=== PATIENT | male | born 1965 | race Caucasian/White ===

== ENCOUNTER 2020-10-07 18:58 | Inpatient (IN) | payer OTHER ==
[~2020-10-07] VITALS: Ht 188 cm; Wt 128.8 kg
--- NOTE | ~2020-10-07 | EMS ---
[address] [address] EMS Patient Care Report Name: GILSON ALMANZA Room #: 170-9 ADM IN M.R.#: [id number] Admission: 10/07/20 Attend Phys: Monica Owusu MD Discharge: Date of : 61 Report #: [id number] THIS REPORT FOR: //name// Report Transmitted: 10/07/2020 20:53 EMS Care Summary [place], [place]/[facility] Incident [id number] @ 10/07/2020 18:21 Incident Location [address] [place] [address] Patient GILSON ALMANZA Male, 55 Years 1965 Patient Address [address] [place] [address] Patient History Other,Hypertension (HTN),Rheumatoid Arthritis,Type 2 Diabetes,Coronary Artery Disease (CAD), Patient Allergies No known allergies, Patient Medications Isosorbide, Aldactone, Risperdal, Mobic, Valproic Acid, Lisinopril, Gabapentin, Klonopin, Zofran, Cymbalta, Trazodone, Folic acid, Depakote, Cyclobenzaprine, Lasix, DuoNeb, [place], Chief Complaint BRONCIAL PNUEMONIA Disposition Transported No Lights/[place] Dispatch Reason Sick Person Transported To [address] [address] EMS Patient Care Report Name: GILSON ALMANZA Room #: 170-9 ADM IN [facility]#: [id number] Admission: 10/07/20 Attend Phys: Monica Owusu MD Discharge: Date of : 61 Report #: [id number] M30 RESPONDED TO A BREATHING PROBLEMS. M30 ARRIVED ON SCENE TO FIND STAFF AND PT OUT FRONT OF NURSING FACILITY IN WHEELCHAIR WAITING FOR TRANSPORT. M30 ASSESSED PT AND HE WAS DEEMED BLS. NURSING FACILITY STAFF SAID PT WAS NEEDING TO BE TRANSPORTED DUE TO "CRITICAL LABS" FOR POSSIBLE BRONCHIAL PNUEMONIA WHICH PT STATED HAD BEEN GOING ON FOR A WEEK. PT HAD NO OTHER COMPLAINTS. PT WAS ASSISTED IN STANDING AND SITTING ONTO STRETCHER AND WAS SECURED USING SEATBELTS AND HANDRAILS THEN LOADED INTO AMBULANCE. PT WAS REASSESSED DURING TRANSPORT AND REMAINED IN STABLE CONDITION WITH NO CHANGES. PT WAS TRANSFERED INTO [facility] SECURED TO STRETCHER AND LEFT SECURED IN A HOSPITAL BED WITH HANDRAILS UP WITH NURSING STAFF. Initial Vitals @18:41P: 89,R: 16,BP: 128/72,Pain: 0/10,CO: 4,SpO2: 95, @18:36P: 97,R: 18,BP: 144/84,Pain: 0/10,GCS: 15,Revised Trauma: 12, Assessments @18:41MENTAL:No Abnormalities,SKIN:No Abnormalities,HEENT:Head/Face: No Abnormalities,Eyes: No Abnormalities,Neck/Airway: No Abnormalities,LUNG SOUNDS:General: No Abnormalities,Left Upper: No Abnormalities,Right Upper: No Abnormalities,Left Lower: No Abnormalities,Right Lower: No Abnormalities,ABDOMEN:General: No Abnormalities,Left Upper: No Abnormalities,Right Upper: No Abnormalities,Left Lower: No Abnormalities,Right Lower: No Abnormalities,PELVIS//GI:No Abnormalities,EXTREMITIES:Left Arm: No Abnormalities,Right Arm: No Abnormalities,Left Leg: No Abnormalities,Right Leg: No Abnormalities,PULSE:NEURO:No Abnormalities, Impression Pneumonia Procedures @18:42ALS AssessmentResponse: UnchangedSucceeded@18:42BLS AssessmentResponse: Unchanged Timeline 18:19,Call Received 18:19,Dispatch Notified 18:21,Dispatched 18:22,En Route 18:31,On Scene 18:32,At Patient 18:36,BP: 144/84 M,PULSE: 97,RR: 18 R,SPO2: Ox,ETCO2: ,BG: ,PAIN: 0,GCS: 15, 18:41,BP: 128/72 M,PULSE: 89,RR: 16 R,SPO2: 95 Ox,ETCO2: ,BG: ,PAIN: 0,GCS: , 18:41,Depart Scene 18:42,ALS Assessment,Response: UnchangedSucceeded, 18:42,BLS Assessment,Response: Unchanged 18:53,At Destination [address] [address] EMS Patient Care Report Name: ALMANZAGILSON Room #: 170-9 ADM IN M.R.#: [id number] Admission: 10/07/20 Attend Phys: Monica Owusu MD Discharge: Date of : 61 Report #: [id number] 19:12,Call Closed Disclaimer v1.1 Copyright 2020 [employer] This EMS Care Summary contains data elements from the applicable legal record (which may be displayed differently). It is designed to provide pertinent information for the following purposes: continuity of care, clinical quality, and state data reporting. The complete legal record is available to ED staff and administrators of the receiving hospital in [employer]'s Patient Tracker. All data is provided "as is."
[2020-10-07 18:58] VITALS: BP 142/86
[2020-10-07 19:41] LABS: URINE BLOOD TRACE (Negative); URINE CLARITY CLEAR; URINE COLOR YELLOW; URINE GLUCOSE-RANDOM* NEGATIVE (Negative); URINE KETONES NEGATIVE (Negative); URINE LEUKOCYTES-REFLEX NEGATIVE (Negative); URINE NITRITE-REFLEX NEGATIVE (Negative); URINE PROTEIN (DIPSTICK) 2+ (Negative); URINE SPECIFIC GRAVITY >= 1.030 (1.005-1.035)
[2020-10-07 19:43] LABS: ICTOTEST (BILI CONFIRMATORY) Negative (Negative); URINE BILIRUBIN NEGATIVE (Negative)
[2020-10-07 19:51] LABS: MUCUS >6 Heavy strn/LPF (None Seen); SQUAMOUS 4-10 Moderate /LPF (0-3)
[2020-10-07 19:52] LABS: FINE GRANULAR CASTS 0-3 Few /LPF (None Seen); HYALINE CASTS 0-3 Few /LPF (None Seen); URINE WBC-REFLEX 0-5 Rare /HPF (0-5)
[2020-10-07 19:54] LABS: BACTERIA-REFLEX 1-9 Few /HPF (None Seen); URINE RBC 1-2 Rare /HPF (NONE SEEN)
[2020-10-07 19:55] LABS: CRYSTALS None Seen /LPF (None Seen); YEAST-REFLEX Present (None Seen)
[2020-10-07 20:00] LABS: HEMOGLOBIN 11.8 gm/dL (14.0-18.0); RDW 15.4 % (10.5-14.5)
[2020-10-07 20:02] LABS: HEMATOCRIT 35.2 % (42.0-52.0); MCH 31.3 pg (26.0-34.0); MCHC 33.6 g/dL (28.0-37.0); MCV 93.2 fL (80.0-100.0); PLATELET COUNT 58 thou/uL (150-400); RBC 3.78 mil/uL (4.50-6.00)
[2020-10-07 20:05] LABS: WBC 1.4 thou/uL (4.0-11.0)
[2020-10-07 20:12] LABS: ANION GAP 6 mmol/L (7-16); BUN 18 mg/dL (7-18); CALCIUM 9.1 mg/dL (8.5-10.1); CHLORIDE 100 mmol/L (98-107); CO2 29 mmol/L (21-32); CREATININE 1.2 mg/dL (0.7-1.3); GLUCOSE 123 mg/dL (74-106); POTASSIUM 4.2 mmol/L (3.5-5.1); SODIUM 135 mmol/L (136-145)
[2020-10-07 20:21] LABS: APTT 27.5 Seconds (24.5-32.8); INR 1.13; PROTIME 12.2 Seconds (10.5-12.1)
[2020-10-07 20:22] LABS: ALBUMIN 3.2 g/dL (3.4-5.0); SGOT 26 U/L (15-37); SGPT 36 U/L (30-65); TOTAL BILIRUBIN 1.2 mg/dL (0.2-1.0); TOTAL PROTEIN 8.7 g/dL (6.4-8.2); TROPONIN-I <0.06 ng/mL (<0.06)
[2020-10-07] MEDS ORDERED: ALBUTEROL2.5 MG/31 INH (20:35)
[2020-10-07] MEDS ORDERED: LIPITOR 40 MG T40 M1 PO (20:35)
[2020-10-07] MEDS ORDERED: SPIRONOLACTONE25 MG PO (20:35)
[2020-10-07] MEDS ORDERED: ASA81BEC PO (20:35)
[2020-10-07] MEDS ORDERED: BREO ELLIPTA 11 EACH INH (20:37)
[2020-10-07] MEDS ORDERED: BIOFREEZE118 ML TOP (20:37)
[2020-10-07] MEDS ORDERED: ORAL ANALGESIC9 GM MUCOUS MEM (20:37)
[2020-10-07] MEDS ORDERED: DOXYCYCLINE HY100 M3 PO (20:38)
[2020-10-07] MEDS ORDERED: DEPAKOTE500 MG PO (20:38)
[2020-10-07] MEDS ORDERED: FOLIC ACID1 MG PO (20:39)
[2020-10-07] MEDS ORDERED: DULOXETINE HCL30 MG PO (20:39)
[2020-10-07] MEDS ORDERED: FLOMAX0.4 MG PO (20:39)
[2020-10-07] MEDS ORDERED: GABAPENTIN800 M1 PO (20:40)
[2020-10-07] MEDS ORDERED: METHOTREXATE 22.5 M1 PO (20:41)
[2020-10-07] MEDS ORDERED: MIRALAX119 GM PO (20:41)
[2020-10-07] MEDS ORDERED: HYDROCODON-ACE1 EAC7 PO (20:42)
[2020-10-07] MEDS ORDERED: RISPERDAL 1 MG T1 MG PO (20:42)
[2020-10-07] MEDS ORDERED: PROTONIX40 M2 PO (20:42)
[2020-10-07] MEDS ORDERED: TRAZODONE HCL50 MG PO (20:43)
[2020-10-07] MEDS ORDERED: SENNA PLUS TAB1 EACH PO (20:43)
[2020-10-07] MEDS ORDERED: VITAMIN B-121000 MC2 PO (20:44)
[2020-10-07 21:00] LABS: ABSOLUTE NEUTROPHILS 0.8 thou/uL (1.4-8.2)
[2020-10-07 21:01] LABS: POLYCHROMASIA 1+; TARGET CELLS 1+; TEARDROPS FEW
[2020-10-07 22:29] VITALS: BP 132/59
[2020-10-07 22:39] VITALS: BP 148/70
[2020-10-07 23:18] VITALS: BP 133/77
--- NOTE | 2020-10-08 04:24 | NUR ---
RECEIVED CARE OF THIS PATIENT AT 2255 VIA CART FROM ED ACCOMPANIED BY ED PERSONEL. PATIENT ALERT AND ORIENTED TO PERSON, SITUATION AND TIME. LIPS DRY AND CRACKED, GAVE COOL WASHCLOTH TO CLEAN LIPS AND MOUTH MOISTURIZER TO APPLY. HAS SORES IN MOUTH. HARD FOR PATIENT TO TALK OR SWALLOW. C/O PAIN IN MOUTH, HAS MAGIC MOUTHWASH DUE IN AM. SLEPT OFF AND ON DURING NIGHT.
--- NOTE | 2020-10-08 07:33 | EKG ---
[address] [address] ELECTROCARDIOGRAM REPORT Name: GILSON ALMANZA Room #: 440-P ADM IN M.R.#: [id number] Admission: 10/07/20 Attend Phys: Mo Julio MD Discharge: Date of : 61 Report #: [id number] [facility] ED Test Date: 2020-10-07 Test Time: 20:02:24 Pat Name: GILSON ALMANZA Department: Room: 440 Gender: M Sheet Hanger: ursula hua : 1965 Requested By: Gee Trejo Order Number: [id number] : Josue Chaves Measurements Intervals [place] Rate: 82 P: 64 OK: 142 QRS: 0 QRSD: 120 T: 71 QT: 387 QTc: 452 Interpretive Statements Sinus rhythm Nonspecific intraventricular conduction delay No previous ECG available for comparison Electronically Signed On 10-08-2020 7:33:16 CDT by Josue Chaves [email or web address] <ELECTRONICALLY SIGNED> By: Josue Chaves MD, [facility] 10/08/20 0733 01 01 Josue Chaves MD, FACC /EPI
[2020-10-08 09:06] VITALS: BP 141/76
--- NOTE | 2020-10-08 09:35 | NUR ---
ASSESSMENT: CM REVIEWED CHART AND SPOKE WITH PATIENT AT THE BEDSIDE. 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 PT REPORTS THAT HE USES A WALKER AT THE FACILITY. PT WAS ADMITTED DUE TO DEHYDRATION/MOUTH SORES. PT IS CURRENTLY ON IV FLUIDS. CM REACHED OUT AND SPOKE WITH PATIENTS SON JAMISON. HE REPORTS THAT [facility] NEVER NOTIFIED HIM THAT HIS FATHER WAS IN THE HOSPITAL. SON REPORTS PATIENT HAS LIVED AT [facility] FOR A LITTLE OVER A YEAR. CM LEFT DOROTA JOHNSON IN ADMISSIONS AT [facility] AND FAXED OVER CLINICAL. CM WILL CONTINUE TO FOLLOW. PLANS WILL BE TO DISCHARGE BACK TO [facility] ONCE MEDICALLY STABLE TO DO SO.
--- NOTE | 2020-10-08 13:39 | NUR ---
ASSUMED PT CARE THIS AM. PT A&OX3, ABLE TO MAKE NEEDS KNOWN. PATIENT WITH SORES ON HIS MOUTH AND LIPS VISIBLE. GIVING PAIN MEDICATION ORDERED AND PROVIDING ICE CHIPS REQUESTED. PATIENT CONTINENT WITH A PERIOD OF INCONTINENCE THIS AM. IV PATENT, ANTIBIOTICS INFUSING, OTHERWISE SALINE LOCKED. PATIENT IS ON ROOM AIR. FALL PRECAUTIONS ARE IN PLACE, CALL LIGHT WITHIN REACH.
[2020-10-08 15:55] VITALS: BP 128/77
[2020-10-08 19:15] VITALS: BP 132/84
[2020-10-08] MEDS ORDERED: DEPAKOTE ER500 M1 PO (22:34)
--- NOTE | 2020-10-09 03:05 | NUR ---
ASSUMED PT CARE AT ABOUT 1915 HRS. PT IS ALERT AND ORIENTED TO SELF AND PLACE. CONFUSED. SORES IN MOUTH WITH SOME DIFFICULTY ARTICULATING WORDS. HE HAS BEEN INCONTINENT OF URINE, WILL USE URINAL SPARINGLY. MAGIC ORAL SWISH GIVEN, PATIENT RATES PAIN AT 10/10,NORCO GIVEN.CONTINUES ON FLUIDS AND ABTS.TMAX OF 100.9. ON ROOM AIR-NO DISTRESS.WILL CONTINUE WITH POC TILL EOS.
[2020-10-09 04:13] VITALS: BP 149/77
[2020-10-09 08:26] VITALS: BP 144/88
[2020-10-09 11:17] LABS: ALBUMIN 2.6 g/dL (3.4-5.0); CALCIUM 8.8 mg/dL (8.5-10.1); CREATININE 0.9 mg/dL (0.7-1.3); POTASSIUM 4.1 mmol/L (3.5-5.1); TOTAL BILIRUBIN 0.8 mg/dL (0.2-1.0); TOTAL PROTEIN 7.9 g/dL (6.4-8.2)
--- NOTE | 2020-10-09 12:29 | HC ---
[facility] [place] [address] CONSULTATION Name: GILSON ALMANZA Room #: 440-P ADM IN ..#: [id number] Admission: 10/07/20 Attend Phys: Mo Julio MD Discharge: Date of : 61 Report #: [id number] THIS REPORT FOR: cc: LAUREN TOURE Physician not on staff Juanjo Villafana MD ~ DOC #: [id number] Juanjo Villafana MD DATE OF SERVICE: 10/08/2020 INFECTIOUS DISEASE CONSULTATION ATTENDING PHYSICIAN: Dr. Julio. REASON FOR EVALUATION: Pancytopenia with oral mucosal ulcerations. HISTORY OF PRESENT ILLNESS: Chart was examined. The patient was examined. This 55-year-old gentleman with fairly extensive medical history including diabetes mellitus, rheumatoid arthritis, does have known vasculopathy as well who reports roughly 3-day history. This is not entirely clear numbers of accuracy. Reports increasing pain associated with his mouth and throat, describes labial oral ulcers, pain with swallowing. It is not clear that he has fevers, may have had some chills as well. He has had some poor p.o. intake due to the pain. Prior to that. He states his appetite was satisfactory. He does admit to some weight loss, although it is not clear to the extent. Due to the above noted issues, he presented to the emergency room. Evaluation was undertaken. CBC showed a total white count of 1400, ANC of 800, had thrombocytopenia with platelet of 58 and anemia 11.8. Electrolytes fairly unremarkable. Creatinine 1.2 and did have an elevated protein 8.7. Urinalysis was otherwise unremarkable with the exception noted yeast on the micro. Chest x-ray showed no evidence of pneumonitis. He was initiated with a single dose of fluconazole. ALLERGIES: None known. MEDICATIONS: Medicines currently include hydrocodone, lidocaine. Medicines on admission include spironolactone, atorvastatin, doxycycline, duloxetine, methotrexate, albuterol, aspirin, benzocaine, divalproex, tamsulosin, folic acid, gabapentin, hydrocodone, pantoprazole, risperidone. PAST MEDICAL HISTORY: As above noted diabetes mellitus, currently he is on treatment, history of seizures, has cardiomyopathy, congestive heart failure, known coronary artery disease, rheumatoid arthritis, chronic anemia, hypertension, chronic renal insufficiency. SOCIAL HISTORY: Smokes cigarettes. No ethanol or illicit drug use. [address] [address] CONSULTATION Name: GILSON ALMANZA Room #: 440-P [facility] IN .R.#: [id number] Admission: 10/07/20 Attend Phys: Mo Julio MD Discharge: Date of : 61 Report #: [id number] FAMILY HISTORY: Noncontributory. REVIEW OF SYSTEMS: Admits to some mild dyspnea. Denies significant gastrointestinal related complaints other than dysphagia and odynophagia. and rectal deferred. LABORATORY DATA: Chest x-ray was otherwise unremarkable. Urinalysis, 0-5 white cells. PT of 12.2, INR of 1.13. Electrolytes: Sodium 135, potassium 4.2, chloride 100, bicarbonate is 20, anion gap of 6, BUN and creatinine 18 and 1.2, glucose 123. LFTs unremarkable. Albumin of 32, total protein is 8.7, estimated GFR of 62. BNP of 42. CBC: White count of 1.4. H and H 11.8 and 35.2, platelets of 58. ASSESSMENT AND PLAN: Pancytopenia. The patient presenting with fairly severe oral labial ulcerations, may involve an esophagitis as well, it is not entirely clear, certainly history of autoimmune could be expanded manifestation. Certainly oral ulcers could be associated with medicines such as methotrexate leading to immune suppression, bone marrow dysfunction. Continue therapy with empiric treatment including fluconazole, certainly could have a Kiley esophagitis, may need to evaluate at some point, would have oncology evaluate possible bone marrow to evaluate underlying hematological abnormality including malignancy. He is remains at significant risk for complications, long-term smoking history. Certainly a solid tumor would be an issue as well. We will image the abdomen and pelvis. MD ALE Hernandez/JOSE <ELECTRONICALLY SIGNED> By: Juanjo Villafana MD 10/09/20 1229 0833 1310 Juanjo Villafana MD /nt
[2020-10-09 14:07] LABS: GLOBULIN TOTAL 4.4 g/dL (2.2-3.9); M-SPIKE Not Observed g/dL (Not Observed)
--- NOTE | 2020-10-09 15:36 | NUR ---
ASSUMED PT CARE THIS AM. PT IS ALERT & ORIENTED X3. PT HAS IV SITE ON R UA. PT UP WITH ASSIST X1 AND USES URINAL. PT ABLE TO SWALLOW MEDICATION WHOLE. PT ACCUCHECK ACHS. PT HAS LOW APPETITE DUE TO ORAL ULCER. PT C/O OF PAIN AND GIVEN PAIN MEDICATION PER PT REQUEST. PT ON THE BED, BED ON THE LOWEST POSITION, SIDE RAILS UP, CALL LIGHT WITHIN REACH. WILL CONTINUE TO MONITOR PT. FOLLOW POC.
[2020-10-09 16:39] VITALS: BP 130/76
[2020-10-09 18:06] LABS: HIV ANTIBODY Non Reactive (Non Reactive)
[2020-10-09 20:00] VITALS: BP 131/79
[2020-10-09 21:06] LABS: SYPHILIS AB Non Reactive (Non Reactive)
--- NOTE | 2020-10-10 03:47 | NUR ---
PT ALERT AND ORIENTED, MOUTH STILL LOOKS RED WITH SORES ON LIPS. HE SWALLOWS MEDS WITH NO TROUBLE. STATES THE MAGIC SWISH HELPS. INCONTINENT, PERICARE PROVIDED AND ZGUARD APPLIED TO GROIN.CALLS WITH NEEDS.
[2020-10-10 04:45] VITALS: BP 128/88
[2020-10-10 05:43] LABS: CALCIUM 8.8 mg/dL (8.5-10.1); CREATININE 0.8 mg/dL (0.7-1.3); HEMOGLOBIN 10.3 gm/dL (14.0-18.0); POTASSIUM 3.8 mmol/L (3.5-5.1)
[2020-10-10 05:45] LABS: HEMATOCRIT 30.2 % (42.0-52.0); MCH 31.7 pg (26.0-34.0); MCHC 34.2 g/dL (28.0-37.0); MCV 92.9 fL (80.0-100.0); PLATELET COUNT 35 thou/uL (150-400); RBC 3.25 mil/uL (4.50-6.00); RDW 15.3 % (10.5-14.5)
[2020-10-10 05:47] LABS: WBC 0.8 thou/uL (4.0-11.0)
[2020-10-10 07:38] VITALS: BP 136/73
[2020-10-10 09:09] LABS: % SATURATION 21 % (20-39); IRON 40 ug/dL (65-175); TIBC 189 ug/dL (250-450)
[2020-10-10 09:27] LABS: ABSOLUTE NEUTROPHILS 0.2 thou/uL (1.4-8.2); PLATELET ESTIMATE MARKEDLY DECREASED
[2020-10-10 09:28] LABS: LARGE PLATELETS RARE
[2020-10-10 10:12] LABS: FOLIC ACID 22.1 ng/mL (8.6-58.9)
--- NOTE | 2020-10-10 10:38 | NUR ---
ASSUMED PT CARE THIS AM. PT IS ALERT & ORIENTED X3 EXCEPT TIME. PT HAS L FA 22 GAUGE. CALLED THE INFECTION CONTROL NURSE PER DR ORDERED FOR SIGNAGE AND PRECATUTION. CALLED [facility] TO FAX LAB AND MEDICATION FROM 6 MONTHS. NURSE AT THE FACILITY STATED THAT SHE WILL FAX IT BUT STILL AWAITING. PT STILL HAVE MOUTH SORE AND USES MAGIC MOUTHWASH. WILL CONTINUE TO ENCOURAGE PT TO EAT. PT IS ACCUCHECK ACHS. PT ON THE BED, BED ON THE LOWEST POSITION, SIDE RAILS UP, CALL LIGHT WITHIN REACH. WILL CONTINUE TO MONITOR PT. FOLLOW POC.
--- NOTE | 2020-10-10 14:22 | NUR ---
ON-GOING ASSESSMENT: CM REVIEWED CHART AND SPOKE WITH ATTENDING. PT REMAINS ON IV ANBX. ID AND HEME/ONC FOLLOWING WELL. CM UPDATED DENEESHA AT [facility] AND ALSO FAXED UPDATED CLINICAL. CM ALSO SPOKE WITH PATIENTS SON TO UPDATE. CM WILL CONTINUE TO FOLLOW TO ASSIST NEDED.
[2020-10-10 15:01] VITALS: BP 135/77
[2020-10-10 18:02] VITALS: BP 126/77
[2020-10-10 22:51] VITALS: BP 123/71
--- NOTE | 2020-10-11 06:56 | HC ---
[facility] [place] [address] CONSULTATION Name: GILSON ALMANZA Room #: 440-P ADM IN .R.#: [id number] Admission: 10/07/20 Attend Phys: Mo Julio MD Discharge: Date of : 61 Report #: [id number] THIS REPORT FOR: cc: LAUREN TOURE Physician not on staff Eduardo Pantoja MD ~ DOC #: [id number] cc: Monica Owusu MD, Lauren Pantoja MD REASON FOR CONSULTATION: Pancytopenia. HISTORY OF PRESENT ILLNESS: The patient is a 55-year-old male from a long-term care facility. He is a very poor historian, who was admitted because of mucositis and pancytopenia. We were able to review records that appear to show that he had normal counts about 2-3 weeks ago, looks like he was begun on methotrexate or a dose change in the MAR beginning 09/24/2020 with folic acid begun on 10/01. The patient's son, Arnaldo, did confirm that the patient does have a history of rheumatoid arthritis since 2015, but he does not know anything about its therapy or medications or change in medications. The patient is a very poor historian, did came to me as a mouth sore and his upper throat hurts. He appears to deny any headache, vision changes, nose irritation, nausea, vomiting, diarrhea, constipation, blood in his urine or stool, maybe some weight change. No lymph node enlargement. Do note that in the MAR he did have a fever earlier, which is lower last night with use of antibiotics. Note that on admit here, his white count was 1.4. ANC was below 1000, hemoglobin 10.3 and platelets 58. Today, his white count is 0.8, differential is pending, platelets are 35,000. Note that he has also had a CT abdomen and pelvis that did not show any hepatosplenomegaly or lymphadenopathy. Serum protein electrophoresis was normal. PAST MEDICAL HISTORY: Appears to be notable for rheumatoid arthritis, anoxic brain injury, ischemic heart disease, hypertension, diabetes. There is a mention of bipolar disorder, but I am not sure that is correct. There is also a mention of vascular disease, but I am not sure if that is correct. There is also a mention of neuropathy and also systolic heart failure and a cerebral infarct, and depression. Note that some of these notes are from [facility]' records from an admit into an ER evaluation in 2019. SOCIAL HISTORY: It sounds like the patient may have been a smoker in the past. Not a drinker. No street drugs. 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 FAMILY HISTORY: Really not available. [facility] [address] [place] [address] CONSULTATION Name: GILSON ALMANZA Room #: 440-P ADM IN M.R.#: [id number] Admission: 10/07/20 Attend Phys: Mo Julio MD Discharge: Date of : 61 Report #: [id number] MEDICATIONS: At this time in the hospital currently include fluconazole daily, duloxetine 60 daily, tamsulosin 0.4 daily, pantoprazole 40 daily, divalproex 500 mg at bedtime, gabapentin 800 t.i.d., folic acid 1 mg b.i.d., risperidone 1 mg b.i.d., trazodone 150 at bedtime, atorvastatin calcium 40 at bedtime, sliding scale insulin, hydrocodone p.r.n., acyclovir 1000 mg IV q. 12, cefepime 2 grams b.i.d. IV, Magic mouthwash 3 teaspoons t.i.d. swish and swallow. PHYSICAL EXAMINATION: GENERAL: The patient appears his stated age. VITAL SIGNS: His height is 6 feet 2 inches, 188 cm; weight is 284 pounds or 128.8 kilograms. Recent blood pressure is 136/73, O2 sat 95%, respirations 18, pulse 74. Afebrile 98.4, earlier last night, he was 99.9 and on the , his temperature was 100.9. HEENT: Face is symmetrical. Lips and oral mucosa do have evidence of mucositis with some blood. NECK: No enlarged lymph nodes in the supraclavicular, cervical, axillary or inguinal region. ABDOMEN: Quite obese, nontender. No definite masses. LUNGS: Fairly clear. There was a slight rhonchi that cleared after a deep breath and a cough. HEART: Regular rate. SKIN: A few ecchymoses from lab draws. ASSESSMENT AND PLAN: 1. Pancytopenia, most likely related to methotrexate. We will try to get additional information from [place] as to whether this had been a dose reintroduction or a dose change recently, but we suspect that is related to this given normal blood counts 2-3 weeks ago. We will add Neupogen growth factor to help with more rapid recovery of blood counts. Platelets would probably fall without any intervention, would not transfuse unless they are below 20,000 or bleeding at a higher level. 2. Febrile episode. Agree with the broad spectrum antibiotics and cultures. 3. Oral mucositis, agree with Magic mouthwash. I would expect this to improve as neutrophils improve. We will also plan for neutropenic precautions. We will ask the nurse to do so. 4. History of rheumatoid arthritis present since 2016. We will try to get additional information from [place], [facility] who prescribing doctor was. 5. Hyperlipidemia, statins as per others. 6. Diabetes mellitus. Dietary changes, sliding scale insulin and oral agents per others. 7. Reported history of anoxic brain damage per others. 8. History of coronary artery disease per chart, medications per others. 9. History of hypertension, meds per others. 10. Possible ischemic heart disease history per others. 11. Mood disorder. Continue multiple meds. We will follow with you. [facility] [address] [address] CONSULTATION Name: GILSON ALMANZA Room #: 440-P [facility] IN M.R.#: [id number] Admission: 10/07/20 Attend Phys: Mo Julio MD Discharge: Date of : 61 Report #: [id number] MD CHEY Chang/LISE/CHRISTA <ELECTRONICALLY SIGNED> By: Eduardo Pantoja MD 10/11/20 0656 0807 0907 Eduardo Pantoja MD /nt
[2020-10-11 07:21] LABS: CREATININE 0.9 mg/dL (0.7-1.3); POTASSIUM 4.2 mmol/L (3.5-5.1)
[2020-10-11 07:32] LABS: HEMATOCRIT 32.7 % (42.0-52.0); HEMOGLOBIN 10.9 gm/dL (14.0-18.0); MCH 31.2 pg (26.0-34.0); MCHC 33.3 g/dL (28.0-37.0); MCV 93.5 fL (80.0-100.0); PLATELET COUNT 62 thou/uL (150-400)
[2020-10-11 07:33] LABS: WBC 1.1 thou/uL (4.0-11.0)
[2020-10-11 07:35] VITALS: BP 112/71
--- NOTE | 2020-10-11 08:05 | NUR ---
PT AOX4, WITH HOARSENESS. PT REPORTS 10/10 MOUTH PAIN. PT RECEIVING PRN PO NORCO Q4HR. PT DENIES SOB WHILE ON ROOM AIR. PT TOLERATING PO INTAKE OF FLUIDS AND CARB CONTROLLED DIET WITHOUT ISSUE. PT WITHOUT NAUSEA OR EMESIS. PT RESTING IN BED THROUGHOUT SHIFT, FREQUENT REPOSITIONING ENCOURAGED, PT NOTED TO SHIFT SLIGHTLY ON HIS OWN, INTERMITTENTLY REFUSING REPOSITIONING ASSISTANCE. PT REPORTS NUMBNESS IN MOUTH, SENSATION INTACT OTHERWISE, PERIPHERAL PULSES PALPABLE IN ALL EXTREMITIES. IV NOT FLUSING, UNABLE TO OBTAIN NEW IV, PT REFUSING ADDITIONAL ATTEMPTS, REQUESTING IV TEAM, UNABLE TO START SCHEDULED IV MEDICATIONS, ONCALL PROVIDER NOTIFIED. PT ENCOURAGED TO NOTIFY STAFF FOR ALL NEEDS, CALL LIGHT WITHIN REACH, BED ALARM ON, BED LOCKED IN LOWEST POSITION, FREQUENT MONITORING WILL CONTINUE.
[2020-10-11 09:37] LABS: ATYPICAL LYMPHS 8 %; NUCLEATED RBCS 2 /100WBC
[2020-10-11 09:39] LABS: ABSOLUTE NEUTROPHILS 0.3 thou/uL (1.4-8.2)
[2020-10-11 09:43] LABS: ANISOCYTOSIS 2+
--- NOTE | 2020-10-11 10:20 | NUR ---
Assess due to dx oral mucositis from medication for RA. Pt resides in LTC facility. Hx anoxic brain injury, RA, DM. Intake has only been about 10% of meals, unsure of any wt changes. BMI is 36. On folic acid. Will offer glucerna shakes each meals until oral lesions improve and pt eating adeuquately. Low nutrition risk.
--- NOTE | 2020-10-11 13:43 | NUR ---
ON-GOING ASSESSMENT: CM REVIEWED CHART AND SPOKE WITH ATTENDING AND PATIENT. PER ATTENDING PT WILL DISCHARGE BACK TO LTC AT TIME OF DISCHARGE. PT IS SLOWLY PROGRESSING AND POSSIBLE DISCHARGE OVER THE WEEKEND. PT CURRENTLY REMAINS ON IV ANBX AT THIS TIME PT IS FROM [facility] AND CM SPOKE WITH [facility] IN ADMISSIONS WHO REPORTS THEY CAN ACCEPT HIM BACK TO LTC WHENEVER HE IS STABLE FOR DISCHARGE. IF PT IS STABLE TO DISCHARGE OVER THE WEEKEND CONTACT [facility] TO FACILITATE AND ARRANGE DISCHARE AT [phone]. FAX FOR [facility] IS [phone], NUMBER FOR REPORT:[phone]. CHART COPY WILL NEED TO BE SENT WITH PATIENT. CONTACT PATIENTS SON TO [place] HIM OF DISCHARGE JAMISON [phone].
[2020-10-11 18:09] VITALS: BP 120/62
--- NOTE | 2020-10-11 19:32 | NUR ---
Received awake on bed. Due medications given as prescribed, able to swallow meds w/o difficulty. On room air. Vital signs stable. On MS, not on telemetry; no complains and signs of chest pain, crushing sensation and heaviness. On carb controlled diet- very poor appetite; encouraged and assisted in eating and drinking; no nausea, no vomiting and no abdominal pain noted. On blood sugar monitoring, taken and recorded accordingly. Incontinent of bowel and bladder, with external south in place- output measured and recorded accordingly; checked regularly and changed as needed. No IV noted during shift change; night RN tried already- pt requesting for IV nurse- paged; new IV resited at L FA. With edema at bilat LE- kept elevated. With excoriation on his scrotum- Z guard applied. Pt turned on his sides regularly. Lab called for critical WBC level this AM- Dr Julio and Dr Carlin informed and aware; no new orders obtained; neutropenic prec observed. No febrile episodes noted today. Complained of mouth pain- on magic mouth wash; Dr Julio asked if frequency can be increased- changed to QID, pre meals; [place] dose also increased- given as prescribed. Diet modified to soft, carb controlled diet- soup added to all meals as per request. To continue monitoring patient.
[2020-10-11 21:05] VITALS: BP 125/78
--- NOTE | 2020-10-12 02:00 | NUR ---
ASSUMED PT CARE AT 1900.PT WAS OBSERVED LYING DOWN WATCHING TV AT SHIFT CHANGE.PT HAD TEM 101,VETERANS' COUNSELOR ON DUTY NOTIFIED ORDER NOTED AND CARRIED OUT.EXTERNAL CONDOM IN PLACE.Z GUARD TO HIS SCROTUM.BLE EDEMA NOTED,LEGS ELEVATED.REPOSITIONED WHILE IN BED.PT CONT ON IV ABX ORDERED.FALL AND NEUTROPENIC PRECAUTIONS MAINTAINED.CALL LIGHT WITHIN REACH.
[2020-10-12 04:00] VITALS: BP 111/74
[2020-10-12 05:07] LABS: HEMATOCRIT 35.2 % (42.0-52.0); HEMOGLOBIN 11.7 gm/dL (14.0-18.0); MCH 31.6 pg (26.0-34.0); MCHC 33.3 g/dL (28.0-37.0); MCV 94.8 fL (80.0-100.0); PLATELET COUNT 113 thou/uL (150-400); RBC 3.72 mil/uL (4.50-6.00); RDW 16.4 % (10.5-14.5)
[2020-10-12 05:10] LABS: POTASSIUM 4.5 mmol/L (3.5-5.1)
[2020-10-12 05:22] LABS: ABSOLUTE NEUTROPHILS 0.7 thou/uL (1.4-8.2); BASOPHILS 0.9 % (0.0-2.0); EOSINOPHILS 5.1 % (0.0-3.0); LYMPHOCYTES 30.3 % (24.0-44.0); MONOCYTES 29.9 % (1.0-8.0); POLYS 33.8 % (36.0-66.0)
[2020-10-12 08:56] VITALS: BP 115/73
[2020-10-12 15:36] VITALS: BP 129/79
--- NOTE | 2020-10-12 18:07 | NUR ---
ASSUMED CARE OF PT AT 0700, PT IS NOT MEETING GOALS AND STILL COMPLAINING OF SEVERE MOUTH PAIN
[2020-10-12 19:12] VITALS: BP 119/67
[2020-10-13 04:10] VITALS: BP 119/70
--- NOTE | 2020-10-13 04:24 | NUR ---
ASSUMED PT CARE AT AROUND 1915 HRS. PT REPORTS FEELING SLIGHTLY BETTER OVERALL.NO FEVER THIS SHIFT. VOIDING OK. ZGUARD APPLIED TO GROIN AREA.CONTINUES ON IV ABTS.SATTING FINE ON ROOM AIR.NEUTROPENIC PRECAUTIONS. WILL CONTINUE WITH POC TILL EOS.
[2020-10-13 05:37] LABS: WBC 6.2 thou/uL (4.0-11.0)
[2020-10-13 05:39] LABS: HEMATOCRIT 32.3 % (42.0-52.0); HEMOGLOBIN 10.8 gm/dL (14.0-18.0); MCH 31.5 pg (26.0-34.0); MCHC 33.4 g/dL (28.0-37.0); MCV 94.4 fL (80.0-100.0); PLATELET COUNT 179 thou/uL (150-400); RBC 3.42 mil/uL (4.50-6.00); RDW 17.1 % (10.5-14.5)
[2020-10-13 06:42] LABS: ABSOLUTE NEUTROPHILS 3.6 thou/uL (1.4-8.2); METAMYELOCYTES 4 %; MYELOCYTES 1 %; NUCLEATED RBCS 2 /100WBC
[2020-10-13 06:43] LABS: PLATELET ESTIMATE NORMAL; POLYCHROMASIA 1+
[2020-10-13 09:22] VITALS: BP 143/79
--- NOTE | 2020-10-13 11:09 | NUR ---
ASSUMED PT CARE THIS AM. PT IS ALERT & ORIENTED X3. PT HAS IV SITE ON L FA SALINE LOCKED. PT IS ON NEUTROPENIC PRECAUTION. PT IS ACCUCHECK ACHS. PT HAS EXTERNAL CATH IN PLACE. PT IS ON ROOM AIR. INFORMED DR ABOUT PT ANC TODAY.N PT TOLERATED MEDICATION AND DIET WELL THIS AM. EDUCATED AND INFORMED PT TO CONTINUE DRINKING FLUID AND EAT. GIVEN MAGIC MOUTHWASH BEFORE MEALS. PT ON THE BED, BED ON THE LOWEST POSITION, SIDE RAILS UP, CALL LIGHT WITHIN REACH. WILL CONTINUE TO MONITOR PT. FOLLOW POC.
[2020-10-13 18:03] VITALS: BP 121/67
[2020-10-13 20:00] VITALS: BP 121/66
--- NOTE | 2020-10-14 01:31 | NUR ---
ASSUMED PT CARE AT 1900.PER REPORT,PT ATE WELL DURIING THE DAY.AT APPROX O1OO, PT HAD EMESIS WHICH CONSISTED OF UNDIGESTED FOOD.PT STATED THAT HE HAD TOO MUCH TO EAT.COMPLETE BED CHANGE DONE.IV ABX ADMINISTERED ORDERED.Z GUARD TO HIS LUIS FERNANDO AREA.FALL AND NEUTROPENIC PREC.MAINTAINED.Q2 TURN.PT HAD A LARGE SOFT FORMED BM THIS SHOFT.EXT CONDOM CATH IN PLACE WITH DARK YELLOW URINE IN THE BAG.CALL LIGHT WITHIN REACH.
[2020-10-14 05:21] LABS: ABSOLUTE NEUTROPHILS 14.7 thou/uL (1.4-8.2); BASOPHILS 0.5 % (0.0-2.0); EOSINOPHILS 0.9 % (0.0-3.0); HEMATOCRIT 32.2 % (42.0-52.0); HEMOGLOBIN 10.7 gm/dL (14.0-18.0); LYMPHOCYTES 7.6 % (24.0-44.0); MCH 31.3 pg (26.0-34.0); MCHC 33.1 g/dL (28.0-37.0); MCV 94.7 fL (80.0-100.0); MONOCYTES 9.5 % (1.0-8.0); POLYS 81.5 % (36.0-66.0); RDW 17.2 % (10.5-14.5)
[2020-10-14 05:22] LABS: PLATELET COUNT 255 thou/uL (150-400)
[2020-10-14 07:49] VITALS: BP 116/76
[2020-10-14] MEDS ORDERED: DIFLUCAN100 MG PO (09:59)
[2020-10-14] MEDS ORDERED: ACYCLOVIR 400400 MG PO (09:59)
--- NOTE | 2020-10-14 15:30 | NUR ---
Assumed pt care at 7am.Pt in bed resting and watching tv.Assessment completed. vss.Assisted pt tray setup and feeding at all meals.Fair appetute noted.Pt took all meds given as ordered.Dr Owusu and Broderick here, dc order noted.This rn notified pt's son and [facility].Transport arranged via [facility].Report given to Kelsey hua at [facility].Ceballos cath and saline lock dc'd.At 1530,pt left per stretcher in stable condition.
== END 2020-10-14 15:29 | DRG 640 ==
LOC: ER 18:58 → EROBS 21:29 → 4S 21:29 → EROBS 22:21 → 4S 23:02
PROVIDERS: Emergency Medicine; Internal Medicine Hematology & Oncology; Specialist; ADMIT Hospitalist; ATTEND Hospitalist
DX: E86.0 Dehydration (principal); D61.811 Other drug-induced pancytopenia; N39.0 Urinary tract infection, site not specified; I13.0 Hypertensive heart and chronic kidney disease with heart failure and stage 1 through stage 4 chronic kidney disease, or unspecified chronic kidney disease; M31.9 Necrotizing vasculopathy, unspecified; T45.1X5A Adverse effect of antineoplastic and immunosuppressive drugs, initial encounter; L98.499 Non-pressure chronic ulcer of skin of other sites with unspecified severity; K12.1 Other forms of stomatitis; D69.6 Thrombocytopenia, unspecified; D70.2 Other drug-induced agranulocytosis; M06.9 Rheumatoid arthritis, unspecified; I25.10 Atherosclerotic heart disease of native coronary artery without angina pectoris; E11.22 Type 2 diabetes mellitus with diabetic chronic kidney disease; I50.9 Heart failure, unspecified; F17.210 Nicotine dependence, cigarettes, uncomplicated; F31.9 Bipolar disorder, unspecified; E78.5 Hyperlipidemia, unspecified; D70.9 Neutropenia, unspecified; Z79.82 Long term (current) use of aspirin; Z79.899 Other long term (current) drug therapy
CPT/HCPCS: 10102